=== PATIENT | male | born 1950 | race Caucasian/White ===

== ENCOUNTER → 2017-03-01 | Day surgery (SDC) | payer OTHER ==
[2017-02-16 17:19] LABS: MEAN CELL VOLUME 96.4 fL (80-100); MEAN CORPUSCULAR HEMOGLOBIN 30.9 pg (25-34); MEAN CORPUSCULAR HGB CONC 32.1 g/dl (32-36); MEAN PLATELET VOLUME 10.6 fL (7.4-10.4); PLATELET COUNT 209 K/uL (130-400); RED BLOOD COUNT 4.98 M/uL (4.7-6.1); WHITE BLOOD COUNT 10.87 K/uL (4.8-10.8)
[2017-02-16 17:30] LABS: PROTHROMBIN TIME (PATIENT) 10.8 SECONDS (9.0-12.0)
[2017-02-16 17:40] LABS: BLOOD UREA NITROGEN 12 mg/dl (7-18); BUN/CREATININE RATIO 8.9 (10-20); CALCIUM 9.1 mg/dl (8.5-10.1); CARBON DIOXIDE 30 mmol/L (21-32); CHLORIDE 104 mmol/L (98-107); CREATININE 1.34 mg/dl (0.60-1.40); GLUCOSE 105 mg/dl (70-99); POTASSIUM 3.8 mmol/L (3.5-5.1); SODIUM 140 mmol/L (136-145)
[~2017-03-01] VITALS: Ht 188 cm; Wt 150.0 kg
[~2017-03-01] MED LIST: ALLO300T2 PO; BACITRACIN 50000 UNIT VIAL ONE; BUPIVACAINE 0.5 % 5 MG/1 ML MPF 30ML VIAL ONE; CEFAZOLIN 1000MG IV PUSH 5 ML IV SCH; CEFAZOLIN SOD 1000MG/5 ML IV PUSH IV ONE; CEPH500C2 PO; CLON2TAB3 PO; DONE1TAB11 PO; DONE1TAB25; DULO60CA44 PO; FENTANYL CITRATE INJ 50 MCG/1 ML 2 ML VIAL ONE; FINA5TAB PO; FRS/40 PO; LACTATED RINGER'S 1000ML 1,000 ML IV SCH; LAMO200T38 PO; LIDOCAINE HCL 1% 20 ML VIAL ONE; METO-649 PO; MIDAZOLAM HCL 5 MG/ML 1 ML VIAL ONE; NITR0.4D6; PATIENT'S ALLERGY INFO NEEDS ENTERED SCH; RXC5 PO; SACU1TAB7; SILD1TAB11 PO; ketoconazole shampoo
[2017-03-01 07:42] VITALS: BMI 42.0
[2017-03-01 07:44] VITALS: Ht 188 cm; Wt 150.0 kg
--- NOTE | 2017-03-01 08:26 | History & Physical Bridge Note ---
H&P Re-Evaluation Bridge Note: I have examined the patient, reviewed the History & Physical and in the interval since the performance of the History & Physical I have noted the following changes of clinical significance:Some mild URI sx last week. No fevers. Improved. Feeling well today. No syncope. Remote history of inappropriate therapy. No changes noted
--- NOTE | 2017-03-01 08:27 | Procedure Note ---
Pre-Mod Sedation Assessment General Date of Moderate Sedation: Mar 01, 2017. Review Cardiovascular: regular rate, rhythm Airway Class: III Pre-Sedation Airway Assessment Oral Cavity: Capped Teeth Able to Visualize Vocal Cords: No Short Thick Neck: Yes Hx of Sleep Apnea: Yes Mallampati Classification: Class III ASA Classification: Class III Procedure Planning Contraindications-for Mod Sed: None Yes Notes The planned sedation has been discussed with the patient and consent obtained. I have identified the patient, determined the appropriateness of sedation and have assessed the patient immediately prior to the procedure. All medicine(s) and interventions are by my order.
--- NOTE | 2017-03-01 09:22 | Discharge Instructions ---
Discharge Instructions Procedure Procedure Date: Mar 01, 2017. Reason for Visit: Elective Replacement Indicator. Discharge Discharge Date: Mar 01, 2017. Discharge Diagnosis: ICD generator change Last Recorded Wt (Kilograms): 150 Anesthesia Post Anesthesia Instructions: If you have had General Anesthesia or IV Sedation: * Do not drive today. * Resume driving when surgeon permits. * Do not make important decisions or sign legal documents today. * Call surgeon for: 1. Temperature elevations greater than 101 degrees F. 2. Uncontrollable pain. 3. Excessive bleeding. 4. Persistent nausea and vomiting. 5. Medication intolerance (nausea, vomiting or rash). * For nausea and vomiting use only clear liquids such as: tea, soda, bouillon until nausea subsides, then gradually increase diet as tolerated. * If you have any concerns or questions, call your surgeon's office. If physician is unavailable and it is an emergency, call 911 or go to the nearest emergency room. Instructions Activity Recommendations: limitations as noted below, shower/bathe limit Return to School/Work: with no limitations Recommended Home Diet: resume previous diet Allergies: Coded Allergies: No Known Allergies (Unverified , 03/01/17) Provider Instructions Keep wound dry and steri-strips intact until f/u in 1 week. May remove outer bulky dressing in AM Follow Up Regine Kinsey Recommendations: Call your doctor if: * Temperature above 101 degrees * Pain not relieved by pain medicine ordered * There is increased drainage or redness from any incision * You have any unanswered questions or concerns. Your Doctors Instructions noted above were prepared by provider Jeremiah Magallanes. Patient Signature Section: Patient Instructions Signature Page Gucci Varghese Patient (or Guardian) Signature/Date: I have read and understand the instructions given to me by my caregivers. Caregiver/RN/Doctor Signature/Date: The above-named patient and/or guardian has received patient instructions on this date. + Original Patient Signature Page (only) stays with chart. Please make copy for patient.
--- NOTE | 2017-03-01 09:24 | [facility] Operative Report ---
Operative Report Date of Service Mar 01, 2017. Operative Report Procedure performed: BiV ICD generator change Staff classics professor: Hugo Tracey MD Indication: The patient is a 66-year-old gentleman with a history of cardiomyopathy and prior ICD implant who was noted on routine evaluation of reached the elective replacement interval. As such she was advised to consider pulse generator change today. Procedure in detail: The patient was informed of the risks benefits alternatives to the intended procedure. He understood such in which proceed. He was taken to the electrophysiology suite in a fasting state. Preoperative antibiotics had been administered. The patient was monitored electrocardiographically throughout today's procedure and conscious sedation was administered per protocol. The left upper pectoral area was prepped and draped in the usual sterile fashion. This area was anesthetized using subcutaneous administration of a lidocaine solution. An incision was made at this site and carried down to the previously implanted pulse generator using sharp dissection. Electrocautery was also employ for dissection as well as for hemostasis. The previous implant device and leads within free from the surrounding scar tissue. A partial capsulotomy was performed. Leads were detached from the old device and attached to a new device. The pocket was irrigated with an antibiotic solution prior to replacement of the device and leads in the pocket. The pocket was subsequently closed in 3 layers of absorbable suture. Steri-Strips and a sterile dressing were applied. The device was tested noninvasively prior to conclusion the procedure. The patient tolerated procedure well. There were no immediate complications. Equipment used New pulse generator: [employer]. Model 3357-40. Serial number: [id number] Retained right atrial lead: [employer]. Model 1688. Serial number [id number] Retained right ventricular lead: [employer]. Model 7121. Serial number [id number] Retained left ventricular lead: [employer]. Model 1158. Serial number [id number] Explanted pulse generator: [employer]. Model 3211-36. Serial [id number] Measured data Right atrial lead: P-waves measured 2.1 millivolts. Pacing threshold 1 volts at 0.5 milliseconds with a pacing impedance of 490 Ohms Right ventricular lead: R-waves measured greater than 12 millivolts. Pacing threshold 1 volt at 0.5 milliseconds with a pacing impedance of 600 Ohms Left ventricular lead: Pacing threshold was 1 volts at 0.5 milliseconds with a pacing impedance of 1075 Ohms Impression: Successful pulse generator change for biventricular ICD I attest to the content of the Intraoperative Record and any orders documented therein. Any exceptions are noted below.
[2017-03-01 09:35] VITALS: BP 110/70; PULSE 64; TEMP 36.8; O2SAT 96
[2017-03-01 10:00] VITALS: BP 119/72; PULSE 64; TEMP 36.8; O2SAT 96
[2017-03-01 10:54] VITALS: BP 109/74; PULSE 87; TEMP 36.8; O2SAT 96
== END | disposition home or self-care (01) ==
LOC: C.ACU 07:16
PROVIDERS: ATTEND Internal Medicine Clinical Cardiac Electrophysiology
DX: I42.9 Cardiomyopathy, unspecified (principal); I11.0 Hypertensive heart disease with heart failure; I50.9 Heart failure, unspecified; I44.7 Left bundle-branch block, unspecified; M10.9 Gout, unspecified; I95.1 Orthostatic hypotension; K21.9 Gastro-esophageal reflux disease without esophagitis; F33.9 Major depressive disorder, recurrent, unspecified; E66.01 Morbid (severe) obesity due to excess calories; Z95.810 Presence of automatic (implantable) cardiac defibrillator; Z79.82 Long term (current) use of aspirin; Z82.49 Family history of ischemic heart disease and other diseases of the circulatory system